=== PATIENT | male | born 1995 | race Caucasian/White ===

== ENCOUNTER 2016-10-21 17:04 | Emergency (ER) | payer MEDICAID, OTHER ==
[2016-10-21 17:19] VITALS: BP 122/69
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
== END 2016-10-21 17:43 | disposition home or self-care (01) ==
LOC: JP.ED 17:04
DX: S01.511A Laceration without foreign body of lip, initial encounter (principal); F17.210 Nicotine dependence, cigarettes, uncomplicated; Y04.0XXA Assault by unarmed brawl or fight, initial encounter
CPT/HCPCS: 87070; 87205; 99283; 99284

== ENCOUNTER 2017-06-10 20:40 | Emergency (ER) | payer SELFPAY ==
[2017-06-10 21:24] VITALS: BP 123/82
[2017-06-10] MEDS ORDERED: Acetaminophen 325 MG Tab PO ONE (21:34)
--- NOTE | 2017-06-10 21:34 | EDM.PDOC ---
ED HPI GENERAL MEDICAL PROBLEM - General Chief Complaint: Fever Stated Complaint: COUGHING UP BLOOD Time Seen by Provider: 06/10/17 21:33 Source of Information: Reports: Patient History Limitations: Reports: No Limitations - History of Present Illness INITIAL COMMENTS - FREE TEXT/NARRATIVE: pt has been ill for several days at home. he has been spiking a temp and he has had a cough which would not stop, Onset: Today Duration: Day(s):, Getting Worse Location: Reports: Chest Associated Symptoms: Reports: Cough, Shortness of Breath, Other (pt had a sore throat. His ears did feel slightly plugged. 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, Other (see below) Other Treatments BLENDER MACHINE OPERATOR: Chlorseptic spray, and cold medicine Throat Pain Score (Numeric/FACES): 4 - Related Data Allergies Allergy/AdvReac Type Severity Reaction Status Date / Time No Known Allergies Allergy Verified 06/10/17 21:24 Home Meds: Home Meds NK [No Known Home Meds] 04/03/15 [History] Past Medical History - Past Health History Medical/Surgical History: Denies Medical/Surgical History Respiratory History: Reports: Bronchitis, Recurrent Social & Family History - Tobacco Use Smoking Status *Q: Light Tobacco Smoker Years of Tobacco use: 4 Packs/Tins Daily: 0.5 Second Hand Smoke Exposure: Yes - Caffeine Use Caffeine Use: Reports: Soda - Recreational Drug Use Recreational Drug Use: Yes Recreational Drug Type: Reports: Marijuana/Hashish Recreational Drug Use Frequency: Daily - Living Situation & Occupation Living situation: Reports: Single Occupation: Student ED ROS ENT - Review of Systems Review Of Systems: See Below Constitutional: Reports: Fever, Chills, Weakness HEENT: Reports: Throat Pain Respiratory: Reports: Shortness of Breath, Cough Cardiovascular: Reports: No Symptoms Endocrine: Reports: No Symptoms GI/Abdominal: Reports: No Symptoms : Reports: No Symptoms ED EXAM, ENT - Physical Exam Exam: See Below Text/Narrative:: pt arrived with sob, marked coughing epoisodes, some throat and ear pain. Exam Limited By: No Limitations General Appearance: Alert, Anxious, Moderate Distress Ears: Other (pt has some redness in both ears. ) Nose: Normal Inspection Mouth/Throat: Throat Pain, Tonsillar Erythema Head: Atraumatic Neck: Normal Inspection Respiratory/Chest: Respiratory Distress, Decreased Breath Sounds, Splinting Cardiovascular: Regular Rate, Rhythm GI/Abdominal: Soft, Non-Tender (Male) Exam: Deferred Rectal (Males) Exam: Deferred Back: Normal Inspection Extremities: Normal Inspection Course - Vital Signs Last Recorded V/S: Last Vital Signs Temp 37.5 C 06/10/17 22:24 Pulse 102 H 06/10/17 21:19 Resp 12 06/10/17 21:19 BP 123/82 06/10/17 21:19 Pulse Ox 98 06/10/17 21:19 - Orders/Labs/Meds Orders: Active Orders 24 hr Category Date Time Status RT Aerosol Therapy [RC] ASDIRECTED Care 06/10/17 21:33 Active RT Aerosol Therapy [RC] ASDIRECTED Care 06/10/17 23:51 Active Chest 2V [CR] Stat Exams 06/10/17 21:32 Taken CULTURE STREP A CONFIRMATION [] Stat Lab 06/10/17 21:32 Results STREP SCRN A RAPID W CULT CONF [] Stat Lab 06/10/17 21:32 Results Labs: Laboratory Tests 06/10/17 Range/Units 21:40 WBC 7.3 (4.5-11.0) K/uL RBC 4.85 (4.30-5.90) M/uL Hgb 15.2 H (12.0-15.0) g/dL Hct 44.2 (40.0-54.0) % MCV 91 (80-98) fL MCH 31 (27-31) pg MCHC 34 (32-36) % Plt Count 226 (150-400) K/uL Neut % (Auto) 55 (36-66) % Lymph % (Auto) 20 L (24-44) % Mcpherson % (Auto) 16 H (2-6) % Eos % (Auto) 9 H (2-4) % Baso % (Auto) 1 (0-1) % Meds: Medications Discontinued Medications Generic Name Dose Route Start Last Admin Trade Name Freq PRN Reason Stop Dose Admin Acetaminophen 650 mg 06/10/17 21:34 06/10/17 21:37 Tylenol PO 06/10/17 21:35 650 mg NOW ONE Administration Albuterol 2.5 mg 06/10/17 21:33 06/10/17 21:38 Proventil Neb Soln NEB 06/10/17 21:34 2.5 mg ONETIME ONE Administration Albuterol 2.5 mg 06/10/17 23:51 06/10/17 23:55 Proventil Neb Soln NEB 06/10/17 23:52 2.5 mg ONETIME ONE Administration Methylprednisolone Sodium Succinate 125 mg 06/10/17 22:11 06/10/17 22:22 Solu-Medrol IM 06/10/17 22:12 125 mg ONETIME ONE Administration - Re-Assessments/Exams Free Text/Narrative Re-Assessment/Exam: 06/11/17 00:11 chest xray did not reveal a pneumonia, wbc was not elevated, influ was denia, strept was neg. Departure - Departure Time of Disposition: 00:02 Disposition: Home, Self-Care 01 Condition: Fair Clinical Impression: Bronchitis - Discharge Information Referrals: PCP,None [Primary Care Provider] - Forms: ED Department Discharge Care Plan Goals: tylenol and motrin for fever, albuterol inhaler 2 puffs qid, zithromax, cool mist humidifier. - My Orders Last 24 Hours: My Active Orders 06/10/17 21:32 Chest 2V [CR] Stat CULTURE STREP A CONFIRMATION [RM] Stat STREP SCRN A RAPID W CULT CONF [RM] Stat 06/10/17 21:33 RT Aerosol Therapy [RC] ASDIRECTED 06/10/17 23:51 RT Aerosol Therapy [RC] ASDIRECTED - Assessment/Plan Last 24 Hours: My Active Orders 06/10/17 21:32 Chest 2V [CR] Stat CULTURE STREP A CONFIRMATION [RM] Stat STREP SCRN A RAPID W CULT CONF [RM] Stat 06/10/17 21:33 RT Aerosol Therapy [RC] ASDIRECTED 06/10/17 23:51 RT Aerosol Therapy [RC] ASDIRECTED
[2017-06-10] MEDS: Albuterol 0.083% 2.5 MG/3 ML Neb Soln NEB ONE (21:38)
[2017-06-10] MEDS ORDERED: methylPREDNISolone Sodium Succinate 125 MG/2 ML SDV IM ONE (22:11)
[2017-06-10] MEDS ORDERED: Albuterol 0.083% 2.5 MG/3 ML Neb Soln NEB ONE (23:51)
--- NOTE | 2017-06-11 08:39 | CR ---
Chest 2V INDICATION: cough COMPARISON: None FINDINGS: Two views. There may be a tiny focal infiltrate in the lingula. Lungs otherwise clear. N o pleural effusion. Heart size normal. IMPRESSION: Possible tiny infiltrate in the lingula.
== END 2017-06-11 00:12 | disposition home or self-care (01) ==
LOC: JP.ED 20:40
DX: J40 Bronchitis, not specified as acute or chronic (principal); F17.210 Nicotine dependence, cigarettes, uncomplicated
CPT/HCPCS: 36415; 71020; 85025; 87081; 87430; 87804; 94640; 96372; 99284; A9270; J2930

== ENCOUNTER 2017-06-15 21:07 | Emergency (ER) | payer SELFPAY ==
[2017-06-15] MEDS ORDERED: Ondansetron 4 MG Tab.DIS PO ONE (21:19)
[2017-06-15 21:21] VITALS: BP 117/74
--- NOTE | 2017-06-15 21:43 | EDM.PDOC ---
ED HPI GENERAL MEDICAL PROBLEM - General Chief Complaint: Gastrointestinal Problem Stated Complaint: ILLNESS Time Seen by Provider: 06/15/17 21:25 Source of Information: Reports: Patient, RN History Limitations: Reports: No Limitations - History of Present Illness INITIAL COMMENTS - FREE TEXT/NARRATIVE: 21 yo male was seen here a couple days ago and was dx with "bronchitis" and was placed on azithromycin. Has never had this medicine before. Now has vomiting and some diarrhea since this morning. Has not had a flu shot. Smokes 1/2 ppd. No current fever, hematemesis, or hematochezia/melena. Onset: Today Onset Date: 06/15/17 Onset Time: 09:00 Duration: Hour(s):, Waxing/Waning Location: Reports: Abdomen Quality: Reports: Dull Severity: Moderate Improves with: Reports: Other (not eating) Worsens with: Reports: Other (food) Context: Reports: Other (uncertain, recent tx with ATB's for bronchitis) Associated Symptoms: Reports: Nausea/Vomiting. 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 (see below) (none for current sx's.) - Related Data Allergies Allergy/AdvReac Type Severity Reaction Status Date / Time No Known Allergies Allergy Verified 06/10/17 21:24 Home Meds: Home Meds NK [No Known Home Meds] 04/03/15 [History] Past Medical History - Past Health History Medical/Surgical History: Denies Medical/Surgical History Respiratory History: Reports: Bronchitis, Recurrent Social & Family History - Tobacco Use Smoking Status *Q: Current Every Day Smoker Years of Tobacco use: 2 Packs/Tins Daily: 0.5 Second Hand Smoke Exposure: Yes - Caffeine Use Caffeine Use: Reports: None - Recreational Drug Use Recreational Drug Use: Yes Recreational Drug Type: Reports: Marijuana/Hashish Recreational Drug Use Frequency: Daily - Living Situation & Occupation Living situation: Reports: Single Occupation: Student ED ROS GENERAL - Review of Systems Review Of Systems: See Below Constitutional: Reports: No Symptoms HEENT: Reports: Rhinitis Respiratory: Reports: Wheezing Cardiovascular: Reports: No Symptoms Endocrine: Reports: No Symptoms GI/Abdominal: Reports: Abdominal Pain, Diarrhea, Decreased Appetite, Nausea, Vomiting. Denies: Black Stool, Bloody Stool, Constipation, Distension, Flatus, Hematemesis, Hematochezia, Melena, Mucous in Stool : Reports: No Symptoms Musculoskeletal: Reports: No Symptoms Skin: Reports: No Symptoms Neurological: Reports: No Symptoms Psychiatric: Reports: No Symptoms ED EXAM, GI/ABD - Physical Exam Exam: See Below Exam Limited By: No Limitations General Appearance: Alert, WD/WN, No Apparent Distress Eyes: Bilateral: Normal Appearance Ears: Normal External Exam, Normal Canal, Hearing Grossly Normal, Normal TMs Nose: Normal Inspection, Normal Mucosa, No Blood Throat/Mouth: Normal Inspection, Normal Lips, Normal Oropharynx, Normal Voice, No Airway Compromise Head: Atraumatic, Normocephalic Neck: Normal Inspection, Supple, Non-Tender, Full Range of Motion Respiratory/Chest: No Respiratory Distress, Lungs Clear, Normal Breath Sounds, No Accessory Muscle Use Cardiovascular: Regular Rate, Rhythm, No Edema GI/Abdominal Exam: Normal Bowel Sounds, Soft, No Distention, Tender (minimal diffuse) Back Exam: Normal Inspection. No: CVA Tenderness (R), CVA Tenderness (L) Extremities: Normal Inspection, Normal Range of Motion, Non-Tender, No Pedal Edema Neurological: Alert, Oriented, CN II-XII Intact, Normal Cognition, No Motor/ Sensory Deficits Psychiatric: Normal Affect, Normal Mood Skin Exam: Warm, Dry, Intact, Normal Color, No Rash Lymphatic: No Adenopathy Course - Vital Signs Last Recorded V/S: Last Vital Signs Temp 36.7 C 06/15/17 21:24 Pulse 99 06/15/17 21:24 Resp 16 06/15/17 21:24 BP 117/74 06/15/17 21:24 Pulse Ox 97 06/15/17 21:24 Orthostatic Blood Pressure [ 136/76 Standing] Orthostatic Blood Pressure [ 129/80 Sitting] Orthostatic Blood Pressure [ 134/80 Supine] - Orders/Labs/Meds Orders: Active Orders 24 hr Category Date Time Status Orthostatic Vital Signs [RC] ASDIRECTED Care 06/15/17 21:19 Active Meds: Medications Discontinued Medications Generic Name Dose Route Start Last Admin Trade Name Freq PRN Reason Stop Dose Admin Ondansetron HCl 4 mg 06/15/17 21:19 06/15/17 21:30 Zofran Odt PO 06/15/17 21:20 4 mg ONETIME ONE Administration Departure - Departure Time of Disposition: 21:45 Disposition: Home, Self-Care 01 Condition: Good Clinical Impression: Vomiting, Diarrhea - Discharge Information Referrals: PCP,None [Primary Care Provider] - Forms: ED Department Discharge Additional Instructions: Zofran every 6-8 hrs as needed for nausea control. Take loperamide per package instructions as needed for diarrhea. Drink sips of clear liquids until your nausea comes under control, then advance diet as tolerated. Consider getting a flu shot. Smoke as little as possible. Use your albuterol more often to improve your lung function. Recheck with your doctor later this week. - My Orders Last 24 Hours: My Active Orders 06/15/17 21:19 Orthostatic Vital Signs [RC] ASDIRECTED - Assessment/Plan Last 24 Hours: My Active Orders 06/15/17 21:19 Orthostatic Vital Signs [RC] ASDIRECTED
== END 2017-06-15 21:43 | disposition home or self-care (01) ==
LOC: JP.ED 21:07
DX: R19.7 Diarrhea, unspecified (principal); R11.2 Nausea with vomiting, unspecified; F17.210 Nicotine dependence, cigarettes, uncomplicated
CPT/HCPCS: 99284; A9270; 99283

== ENCOUNTER 2019-06-07 21:12 | Emergency (ER) | payer SELFPAY ==
[2019-06-07 22:08] VITALS: BP 113/76; PULSE 80
[2019-06-07] MEDS ORDERED: Acetaminophen/HYDROcodone 108-2.5 MG/5 ML Soln 15 ML UD Cup PO ONE (23:03)
--- NOTE | 2019-06-07 23:09 | EDM.PDOC ---
ED HPI GENERAL MEDICAL PROBLEM - General Chief Complaint: ENT Problem Stated Complaint: TONSILS Time Seen by Provider: 06/07/19 22:55 Source of Information: Reports: Patient, Old Records History Limitations: Reports: No Limitations - History of Present Illness INITIAL COMMENTS - FREE TEXT/NARRATIVE: 23 yo male presents with about a 24 hr hx of progressive R sided sore throat. No fever. No rash. No self tx. 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) Throat Pain Score (Numeric/FACES): 5 - Related Data Allergies Allergy/AdvReac Type Severity Reaction Status Date / Time No Known Allergies Allergy Verified 06/10/17 21:24 Home Meds: Home Meds NK [No Known Home Meds] 04/03/15 [History] Past Medical History - Past Health History Medical/Surgical History: Denies Medical/Surgical History Respiratory History: Reports: Bronchitis, Recurrent Social & Family History - Tobacco Use Smoking Status *Q: Current Every Day Smoker Years of Tobacco use: 3 Packs/Tins Daily: 0.5 Used Tobacco, but Quit: No - Caffeine Use Caffeine Use: Reports: Coffee, Soda - Alcohol Use Days Per Week of Alcohol Use: 3 Number of Drinks Per Day: 4 Total Drinks Per Week: 12 - Recreational Drug Use Recreational Drug Use: No - Living Situation & Occupation Living situation: Reports: Single Occupation: Student ED ROS ENT - Review of Systems Review Of Systems: See Below Constitutional: Reports: No Symptoms HEENT: Reports: Throat Pain, Other (small amt of blood from throat). Denies: Nose Pain, Throat Swelling Respiratory: Reports: No Symptoms Cardiovascular: Reports: No Symptoms GI/Abdominal: Reports: No Symptoms Skin: Reports: No Symptoms ED EXAM, ENT - Physical Exam Exam: See Below Exam Limited By: No Limitations General Appearance: Alert, WD/WN, No Apparent Distress Eye Exam: Bilateral Eye: Normal Inspection Ears: Normal External Exam, Normal Canal, Hearing Grossly Normal, Normal TMs Nose: Normal Inspection, No Blood Mouth/Throat: Normal Lips, Tonsillar Swelling (R side only), Other (R sided mild to moderate throat swelling. ). No: Drooling, Hoarse Voice, Lip Swelling, Muffled Voice, Pharyngeal Erythema, Tonsillar Erythema, Tonsillar Exudates, Uvular Deviation, Uvular Edema Head: Atraumatic, Normocephalic Neck: Normal Inspection Respiratory/Chest: No Respiratory Distress, Lungs Clear, Normal Breath Sounds, No Accessory Muscle Use Cardiovascular: Regular Rate, Rhythm, No Edema Neurological: Alert, Oriented, CN II-XII Intact, Normal Cognition, No Motor/ Sensory Deficits Psychiatric: Normal Affect, Normal Mood Skin: Warm, Dry, Intact, Normal Color, No Rash Course - Vital Signs Text/Narrative:: Gave Rocephin 2 gm IV for a presumed early R peritonsillar abscess. Will have him recheck tomorrow in the clinic. Last Recorded V/S: Last Vital Signs Temp 36.7 C 06/07/19 22:06 Pulse 80 06/07/19 22:06 Resp 14 06/07/19 22:06 BP 113/76 06/07/19 22:06 Pulse Ox 98 06/07/19 22:06 - Orders/Labs/Meds Orders: Active Orders 24 hr Category Date Time Status CULTURE STREP A CONFIRMATION [] Stat Lab 06/07/19 23:24 Results STREP SCRN A RAPID W CULT CONF [] Stat Lab 06/07/19 23:24 Results Sodium Chloride 0.9% [Saline Flush] Med 06/07/19 23:43 Active 10 ml FLUSH ASDIRECTED PRN cefTRIAXone [Rocephin] 2 gm Med 06/07/19 23:43 Active Sodium Chloride 0.9% [Normal Saline] 50 ml IV ONETIME Saline Lock Insert [OM.PC] Routine Oth 06/07/19 23:43 Ordered Medication Orders Ceftriaxone Sodium 2 gm/ (Sodium Chloride) 50 mls @ 100 mls/hr IV ONETIME ONE Stop: 06/08/19 00:12 Sodium Chloride (Saline Flush) 10 ml FLUSH ASDIRECTED PRN PRN Reason: Keep Vein Open Meds: Medications Generic Name Dose Route Start Last Admin Trade Name Freq PRN Reason Stop Dose Admin Ceftriaxone Sodium 2 gm/ 50 mls @ 100 mls/hr 06/07/19 23:43 Sodium Chloride IV 06/08/19 00:12 ONETIME ONE Sodium Chloride 10 ml 06/07/19 23:43 Saline Flush FLUSH ASDIRECTED PRN Keep Vein Open Discontinued Medications Generic Name Dose Route Start Last Admin Trade Name Rmq PRN Reason Stop Dose Admin Hydrocodone Bitart/Acetaminophen 15 ml 06/07/19 23:03 06/07/19 23:23 Acetaminophen/Hydrocodone 108-2.5 Mg/5 Ml PO 06/07/19 23:04 15 ml ONETIME ONE Administration Departure - Departure Time of Disposition: 00:30 Disposition: Home, Self-Care 01 Condition: Fair Clinical Impression: Peritonsillar abscess - Discharge Information *PRESCRIPTION DRUG MONITORING PROGRAM REVIEWED*: No *COPY OF PRESCRIPTION DRUG MONITORING REPORT IN PATIENT DRAGAN: No Instructions: Peritonsillar Abscess, [id number] Referrals: PCP,None [Primary Care Provider] - Forms: ED Department Discharge Additional Instructions: Take ibuprofen and/or acetaminophen as needed for pain relief. Drink ample fluids. Recheck in the clinic tomorrow afternoon. - My Orders Last 24 Hours: My Active Orders 06/07/19 23:24 CULTURE STREP A CONFIRMATION [RM] Stat STREP SCRN A RAPID W CULT CONF [RM] Stat 06/07/19 23:43 Sodium Chloride 0.9% [Saline Flush] 10 ml FLUSH ASDIRECTED PRN cefTRIAXone [Rocephin] 2 gm Sodium Chloride 0.9% [Normal Saline] 50 ml IV ONETIME Saline Lock Insert [OM.PC] Routine - Assessment/Plan Last 24 Hours: My Active Orders 06/07/19 23:24 CULTURE STREP A CONFIRMATION [RM] Stat STREP SCRN A RAPID W CULT CONF [RM] Stat 06/07/19 23:43 Sodium Chloride 0.9% [Saline Flush] 10 ml FLUSH ASDIRECTED PRN cefTRIAXone [Rocephin] 2 gm Sodium Chloride 0.9% [Normal Saline] 50 ml IV ONETIME Saline Lock Insert [OM.PC] Routine
[2019-06-07] MEDS ORDERED: Sodium Chloride 0.9% 10 ML Syringe FLUSH PRN (23:43)
[2019-06-07] MEDS ORDERED: cefTRIAXone 2 GM in Sodium Chloride 0.9% 50 ML IV ONE (23:43)
== END 2019-06-08 00:35 | disposition home or self-care (01) ==
LOC: JP.ED 21:12
DX: J36 Peritonsillar abscess (principal); F17.210 Nicotine dependence, cigarettes, uncomplicated
CPT/HCPCS: 87081; 87880; 96365; 99283; A9270; J0696; J7050